=== PATIENT | female | born 1965 | race Caucasian/White ===

== ENCOUNTER → 2017-11-07 | Outpatient (CLI) | payer MEDICAID ==
[~2017-11-07] MED LIST: CALCIUM PO; CHOL10003 PO; CRANBERRY FRUIT PO; GLUC-121 PO; IRON PO; K2 PO; PROGESTERONE PO; VITA1TAB19 PO; ZINC PO; [UNRECOGNIZED DRUG - OTHER] PO; [UNRECOGNIZED DRUG - OTHER] PO
[2017-11-07 11:30] LABS: BASOPHILS # (AUTO) 0.04 x10^3/uL (0-0.1); BASOPHILS % (AUTO) 1 % (0-1); EOSINOPHILS # (AUTO) 0.14 x10^3/uL (0-0.4); EOSINOPHILS % (AUTO) 3 % (1-7); LYMPHOCYTES # (AUTO) 1.55 x10^3/uL (1-3.4); LYMPHOCYTES % (AUTO) 27 % (22-44); MD NO; MEAN CORPUSCULAR HEMOGLOBIN 28.4 pg (27.0-34.8); MEAN CORPUSCULAR HGB CONC 32.6 g/dL (32.4-35.8); MEAN CORPUSCULAR VOLUME 87.1 fL (80-100); MEAN PLATELET VOLUME 7.7 fL (7.4-10.4); MONOCYTES % (AUTO) 10 % (2-9); NEUTROPHILS # (AUTO) 3.43 x10^3/uL (1.8-6.8); NEUTROPHILS % (AUTO) 60 % (42-75); PLATELET COUNT 400 x10^3/uL (130-400); RED BLOOD COUNT 4.15 x10^6/uL (3.82-5.3); RED CELL DISTRIBUTION WIDTH 13.1 % (9.6-15.2)
[2017-11-07 11:43] LABS: INTERNATIONAL NORMALIZED RATIO 0.95 (0.93-1.1); PROTHROMBIN TIME 9.9 Seconds (9.6-11.5)
[2017-11-07 11:45] LABS: ALANINE AMINOTRANSFERASE 20 U/L (12-78); ALBUMIN 3.5 g/dL (3.4-5.0); ANION GAP 6 mmol/L (5-15); CALCIUM 8.5 mg/dL (8.5-10.1); CHLORIDE 111 mmol/L (98-107); CREATININE 0.83 mg/dL (0.55-1.02)
[2017-11-07 11:50] LABS: ALKALINE PHOSPHATASE 50 U/L (45-117); BILIRUBIN,TOTAL 0.1 mg/dL (0.2-1.0); TOTAL PROTEIN 7.1 g/dL (6.4-8.2)
== END | disposition home or self-care (01) ==
LOC: STAR 10:34 → MERGE 11:00
PROVIDERS: ATTEND Specialist
DX: Z01.818 Encounter for other preprocedural examination (principal); D75.9 Disease of blood and blood-forming organs, unspecified
CPT/HCPCS: 36415; 71046; 80053; 84703; 85025; 85610; 85730; 93005

== ENCOUNTER 2017-11-14 11:42 | Day surgery (SDC) | payer MEDICAID ==
[~2017-11-14] VITALS: Ht 154.9 cm; Wt 61.2 kg
[2017-11-14] MEDS ORDERED: LACTATED RINGERS 1,000 ML IV SCH (12:23)
[2017-11-14] MEDS ORDERED: LIDOCAINE-MPF 1%, 2ML INFIL ONE (12:30)
[2017-11-14 12:50] LABS: HCG UR SG 1.021 (1.003-1.030)
[2017-11-14] MEDS ORDERED: FENTANYL PF 250 MCG/5ML ONE (13:55)
[2017-11-14] MEDS ORDERED: MIDAZOLAM 1 MG/ML, 2ML ONE (13:55)
[2017-11-14] MEDS ORDERED: GABAPENTIN 300 MG CAPSULE ONE (14:39)
[2017-11-14] MEDS ORDERED: ACETAMINOPHEN 500 MG TABLET ONE (14:39)
[2017-11-14] MEDS ORDERED: FAMOTIDINE 20 MG TABLET ONE (14:40)
[2017-11-14] MEDS ORDERED: OXYcodone IR 5MG TABLET ONE (14:41)
[2017-11-14] MEDS ORDERED: PROPOFOL 10 MG/ML, 20ML ONE (14:44)
[2017-11-14] MEDS ORDERED: DEXAMETHASONE 4 MG/ML, 1ML ONE ×2 (14:45→14:48)
[2017-11-14] MEDS ORDERED: ROCURONIUM 10MG/ML,5ML ONE (14:45)
[2017-11-14] MEDS ORDERED: CEFAZOLIN 1,000 MG ONE (14:48)
[2017-11-14] MEDS ORDERED: GLYCOPYRROLATE 0.2MG/1ML, 5ML ONE (14:48)
[2017-11-14] MEDS ORDERED: ONDANSETRON 2MG/ML, 2ML ONE ×2 (14:48→20:13)
[2017-11-14] MEDS ORDERED: OXYcodone IR 5MG TABLET PO ONE (15:00)
[2017-11-14] MEDS ORDERED: ACETAMINOPHEN 500 MG TABLET PO ONE (15:00)
[2017-11-14] MEDS ORDERED: GABAPENTIN 300 MG CAPSULE PO ONE (15:00)
[2017-11-14] MEDS ORDERED: FAMOTIDINE 20 MG TABLET PO ONE (15:00)
[2017-11-14] MEDS ORDERED: BUPIVACAINE/PF-EPI 0.25% 1:200K INFIL ONE (15:25)
[2017-11-14] MEDS ORDERED: FENTANYL PF 100 MCG/2ML IV PRN (16:00)
[2017-11-14] MEDS ORDERED: MEPERIDINE/PF 25MG/0.5ML IVPush PRN (16:00)
[2017-11-14] MEDS ORDERED: ONDANSETRON 2MG/ML, 2ML IV PRN (16:00)
[2017-11-14] MEDS ORDERED: OXYcodone 5 MG/5 ML ORAL.SOL UDC PO PRN (16:00)
[2017-11-14] MEDS ORDERED: LABETALOL 5MG/ML, 20ML IV PRN (16:00)
[2017-11-14] MEDS ORDERED: HYDROmorphone 1 MG/ML, 1ML IV PRN (16:00)
[2017-11-14] MEDS ORDERED: PROMETHAZINE 25 MG/ML, 1ML IV PRN (16:00)
[2017-11-14] MEDS ORDERED: hydrALAzine 20 MG/ML, 1ML IV PRN (16:00)
[2017-11-14] MEDS ORDERED: NEOSTIGMINE 1 MG/ML, 10ML ONE (16:03)
[2017-11-14] MEDS ORDERED: KETOROLAC 30 MG/1 ML ONE (16:41)
[2017-11-14] MEDS ORDERED: ACETAMINOPHEN 325 MG TABLET ONE (16:41)
[2017-11-14] MEDS ORDERED: OXYcodone 5 MG/5 ML ORAL.SOL UDC ONE (16:41)
[2017-11-14] MEDS ORDERED: KETOROLAC 30 MG/1 ML IVPush PRN (17:00)
[2017-11-14] MEDS ORDERED: MORPHINE SULFATE 4 MG/ML, 1ML IV ONE (18:00)
[2017-11-14] MEDS ORDERED: ONDANSETRON ODT 4 MG PO PRN (20:15)
== END 2017-11-14 22:00 | disposition home or self-care (01) ==
LOC: OUT 11:42 → MERGE 15:00 → 4NOR 17:32 → OUT 22:00
PROVIDERS: ATTEND Specialist
DX: D25.1 Intramural leiomyoma of uterus (principal); N83.02 Follicular cyst of left ovary; N83.01 Follicular cyst of right ovary; N85.2 Hypertrophy of uterus; N85.00 Endometrial hyperplasia, unspecified
CPT/HCPCS: 36415; 58571; 81025; 86850; 86900; 86923; 88307; J0690; J1100; J1885; J2250; J2405; J2704; J2710; J3010; J3490; J7120; Q0162; S2900